=== PATIENT | female | born 1945 | race Caucasian/White ===

== ENCOUNTER 2025-03-19 20:55 | Emergency (ER) | payer MEDICARE, MEDICAID ==
[~2025-03-19] VITALS: Ht 154.9 cm; Wt 77.0 kg
[2025-03-19 20:58] VITALS: TEMP 36.2; O2SAT 96
[2025-03-19 23:42] VITALS: TEMP 97.2
[2025-03-19] MEDS: ACETAMINOPHEN 325MG TABLET PO ONE (23:42)
[2025-03-19] MEDS: ONDANSETRON 4MG ODT PO ONE (23:42)
[2025-03-20 00:02] VITALS: BP 141/65; PULSE 56; RESP 18; O2SAT 100
[2025-03-20] MEDS ORDERED: CYCL10TA21 MT (00:09)
[2025-03-20] MEDS ORDERED: MECL-299 MT (00:09)
[2025-03-20] MEDS ORDERED: IBUP-2029 MT (00:09)
[2025-03-20] MEDS ORDERED: LIDO700A30 TP (00:09)
== END 2025-03-20 00:26 | disposition home or self-care (01) ==
LOC: ER 20:55
DX: S00.03XA Contusion of scalp, initial encounter (principal); E11.9 Type 2 diabetes mellitus without complications; F10.129 Alcohol abuse with intoxication, unspecified; I10 Essential (primary) hypertension; R56.1 Post traumatic seizures; Z88.0 Allergy status to penicillin; W19.XXXA Unspecified fall, initial encounter; Y93.89 Activity, other specified; Y92.89 Other specified places as the place of occurrence of the external cause; Y99.8 Other external cause status; Y90.9 Presence of alcohol in blood, level not specified
CPT/HCPCS: 99284; 70450; Q0162; A4606